=== PATIENT | female | born 1965 | race Caucasian/White ===

== ENCOUNTER 2017-08-21 23:36 | Emergency (ER) | payer OTHER, MEDICAID ==
[~2017-08-21] VITALS: Ht 162.6 cm; Wt 77.1 kg
[~2017-08-21 23:36] MED LIST: AMOXICILLIN500 M1 PO; AZO URINARY P97.5 MG; CARDIZEM60 MG PO; CIPROFLOXACIN500 M1 PO; DIFLUCAN150 MG PO; HYDROCODON-ACE1 EAC7 PO; IBUPROFEN 200200 M1 PO; IBUPROFEN 800800 M1 PO; IBUPROFEN 800800 MG PO; NORCO 5-325 TA1 EACH PO; TRAMADOL 50 MG50 MG PO; VENTOLIN HFA 1818 GM INH; ZPAK PO
[2017-08-21] MEDS ORDERED: KEFLEX500 M1 PO (23:56)
[2017-08-21] MEDS ORDERED: CIPROFLOXIN HC2.5 M1 OTIC (23:56)
[2017-08-22] MEDS ORDERED: CARDIZEM60 MG PO ×2 (00:02→00:03)
[2017-08-22 00:18] VITALS: BP 134/80
== END 2017-08-22 00:18 | disposition home or self-care (01) ==
LOC: M.ERS 23:36
DX: H66.92 Otitis media, unspecified, left ear (principal); I10 Essential (primary) hypertension; H60.502 Unspecified acute noninfective otitis externa, left ear; F10.99 Alcohol use, unspecified with unspecified alcohol-induced disorder; Z88.1 Allergy status to other antibiotic agents

== ENCOUNTER 2018-06-18 22:42 | Emergency (ER) | payer OTHER ==
[~2018-06-18] VITALS: Ht 162.6 cm; Wt 79.4 kg
[~2018-06-18 22:42] MED LIST changes: +CIPROFLOXIN HC2.5 M1 OTIC; +KEFLEX500 M1 PO
[2018-06-18] MEDS ORDERED: TUSSIONEX PENN115 ML PO (23:41)
[2018-06-18] MEDS ORDERED: PROAIR HFA8.5 GM INH (23:43)
[2018-06-18 23:50] VITALS: BP 156/93
== END 2018-06-18 23:50 | disposition home or self-care (01) ==
LOC: M.ERS 22:42
DX: J06.9 Acute upper respiratory infection, unspecified (principal); Z88.1 Allergy status to other antibiotic agents; Z98.890 Other specified postprocedural states

== ENCOUNTER 2021-03-28 23:17 | Emergency (ER) | payer OTHER ==
[~2021-03-28] VITALS: Ht 162.6 cm; Wt 79.4 kg
[~2021-03-28 23:17] MED LIST changes: +PROAIR HFA8.5 GM INH; +TUSSIONEX PENN115 ML PO
[2021-03-29] MEDS ORDERED: DOXYCYCLINE 10100 MG PO (00:44)
[2021-03-29] MEDS ORDERED: ACETAMINOPHEN-1 EAC2 PO (00:44)
[2021-03-29] MEDS ORDERED: IBUPROFEN 600600 M1 PO (00:44)
[2021-03-29 00:53] VITALS: BP 150/90
== END 2021-03-29 00:53 | disposition home or self-care (01) ==
LOC: M.ERS 23:17
DX: K02.9 Dental caries, unspecified (principal); K05.6 Periodontal disease, unspecified; H65.91 Unspecified nonsuppurative otitis media, right ear; Z98.890 Other specified postprocedural states; Z88.1 Allergy status to other antibiotic agents